=== PATIENT | male | born 1965 | race Caucasian/White ===

== ENCOUNTER 2017-03-25 00:41 | Observation (INO) | payer OTHER ==
--- NOTE | 2017-03-25 00:49 | CPEKG ---
Heart Rate: 84 RR Interval: 714 P-R Interval: 135 QRSD Interval: 90 QT Interval: 356 QTC Interval: 421 P Raymond: 70 QRS Raymond: 52 T Wave Raymond: 36 EKG Severity - NORMAL ECG - EKG Impression: SINUS RHYTHM Electronically Signed By: Vishal Chou 25-Mar-2017 05:21:52
[2017-03-25 01:04] LABS: % IMMATURE GRANULYOCYTES 0.2 % (0.0-1.1); ABSOLUTE IMMATURE GRANULOCYTES 0.01 10^3/uL (0.00-0.10); ADD DIFF? NO; ADD MORPH? NO; ADD SCAN? NO; ATYPICAL LYMPHOCYTE FLAG 10 (0-99); FRAGMENT RBC FLAG 0 (0-99); HEMATOCRIT 45.3 % (40.0-51.0); LEFT SHIFT FLG 0 (0-99); LIPEMIA HEMOLYSIS FLAG 90 (0-99); MEAN CELL HEMOGLOBIN 31.5 pg (27.9-34.1); MEAN CELL HEMOGLOBIN CONCENTR. 35.3 g/dL (32.4-36.7); MEAN CELL VOLUME 89.2 fL (81.5-99.8); MEAN PLATELET VOLUME 11.3 fL (8.7-11.7); PLATELET CLUMPS FLAG 0 (0-99); PLATELET COUNT 191 10^3/uL (150-400); RED BLOOD CELL COUNT 5.08 10^6/uL (4.40-6.38); RED CELL DISTRIBUTION WIDTH 11.6 % (11.5-15.2)
[2017-03-25 01:11] LABS: ANION GAP 14 mEq/L (8-16); CARBON DIOXIDE 25 mEq/l (22-31); CHLORIDE 100 mEq/L (97-110); CREATININE 1.2 mg/dL (0.7-1.3); GLOMERULAR FILTRATION RATE > 60; GLUCOSE 102 mg/dL (70-100); SODIUM 139 mEq/L (134-144)
--- NOTE | 2017-03-25 01:13 | EDPHY ---
H & P Stated Complaint: fatigue; sudden back pain then syncope episode Time Seen by Provider: 03/25/17 00:56 HPI/ROS: Chief Complaint: Chest pain, syncope HPI: 51-year-old male with no significant medical problems came home from a concert this morning. Was getting ready for bed when he started feeling lightheaded. He then developed pain in his left chest from his left elbow and going into his left neck. It was sharp as he was being stabbed with a knife. It was an 8/10 in intensity. He became pale and clammy. He then had a witnessed syncopal episode and was unconscious for less than a minute. On regaining consciousness discomfort in his chest was gone. He has a very mild headache with tenderness in the right side of his head where he hit a chest when he fell. No other recent illness otherwise he had a mild headache today. No nausea or vomiting. No shortness of breath. No history of syncope in the past. Does have a family history of coronary artery disease. ROS: 10 point Review of Systems is negative except as noted in the HPI. PMH: None Medications: None Allergies: Penicillin which causes rash Social History: No smoking, no alcohol, occasional marijuana Family History: Father's history is unknown, mother and maternal uncle both have a history of coronary artery disease status post stenting Physical Exam: Gen: Awake, Alert, No Distress HEENT: Nose: no rhinorrhea Eyes: PERRLA, EOMI Mouth: Moist mucosa Neck: Supple, no JVD Chest: nontender, lungs clear to auscultation Heart: S1, S2 normal, no murmur Abd: Soft, non-tender, no guarding Back: no CVA tenderness, no midline tenderness Ext: no edema, non-tender Skin: no rash Neuro: CN II-XII intact, Sensation grossly intact, Strength 5/5 in bilateral upper and lower extremities - Personal History Current Tetanus/Diphtheria Vaccine: Yes Tetanus Vaccine Date: 2016 - Medical/Surgical History Hx Asthma: No Hx Chronic Respiratory Disease: No Hx Diabetes: No Hx Cardiac Disease: No Hx Renal Disease: No Hx Cirrhosis: No Hx Alcoholism: No Hx HIV/AIDS: No Hx Splenectomy or Spleen Trauma: No Other PMH: several knees surgeries, pneumonia - Social History Smoking Status: Former smoker Constitutional: Initial Vital Signs Heart Rate 80 03/25/17 00:52 Respiratory Rate 18 03/25/17 00:52 Blood Pressure 115/86 H 03/25/17 00:52 O2 Sat (%) 94 03/25/17 00:52 O2 Delivery Mode Room Air Allergies/Adverse Reactions: Penicillins Allergy (Verified 12/04/14 15:39) Home Medications: Medication Instructions Recorded Daily Vitamin Formula-Minerals 03/25/17 Medical Decision Making - Diagnostics EKG Interpretation: ECG time 12:47 a.m.: Sinus rhythm with a rate of 84, normal axis, normal intervals, no acute ST or T-wave changes. Impression: Normal ECG. Imaging Results: Chest x-ray is negative per my interpretation. Imaging: Discussed imaging studies w/ call center operator Radiologist, I viewed and interpreted images myself ED Course/Re-evaluation: 51-year-old male with a family history of coronary disease had chest pain followed by syncopal event. This is very current concerning for a possible arrhythmia. ECG is negative now. D-dimer is elevated. Will get CT angiogram of the chest to rule out PE. Patient is resting comfortably. Troponin is negative. CT scan of the chest is negative for PE. Case discussed with Dr. Ortega, hospitalist. He will admit to his service for further evaluation. - Data Points Laboratory Results: Laboratory Results 03/25/17 00:45 03/25/17 00:45 03/25/17 03/25/17 03/25/17 00:45 00:45 00:45 WBC 5.78 10^3/uL 10^3/uL (3.80-9.50) RBC 5.08 10^6/uL 10^6/uL (4.40-6.38) Hgb 16.0 g/dL g/dL (13.7-17.5) Hct 45.3 % % (40.0-51.0) MCV 89.2 fL fL (81.5-99.8) MCH 31.5 pg pg (27.9-34.1) MCHC 35.3 g/dL g/dL (32.4-36.7) RDW 11.6 % % (11.5-15.2) Plt Count 191 10^3/uL 10^3/uL (150-400) MPV 11.3 fL fL (8.7-11.7) Neut % (Auto) 68.2 % % (39.3-74.2) Lymph % (Auto) 21.6 % % (15.0-45.0) [place] % (Auto) 9.0 % % (4.5-13.0) Eos % (Auto) 0.5 % L % (0.6-7.6) Baso % (Auto) 0.5 % % (0.3-1.7) Nucleat RBC Rel Count 0.0 % % (0.0-0.2) Absolute Neuts (auto) 3.94 10^3/uL 10^3/uL (1.70-6.50) Absolute Lymphs (auto) 1.25 10^3/uL 10^3/uL (1.00-3.00) Absolute Monos (auto) 0.52 10^3/uL 10^3/uL (0.30-0.80) Absolute Eos (auto) 0.03 10^3/uL 10^3/uL (0.03-0.40) Absolute Basos (auto) 0.03 10^3/uL 10^3/uL (0.02-0.10) Absolute Nucleated RBC 0.00 10^3/uL 10^3/uL (0-0.01) Immature Gran % 0.2 % % (0.0-1.1) Immature Gran # 0.01 10^3/uL 10^3/uL (0.00-0.10) D-Dimer 0.85 ug/mLFEU H ug/mLFEU (0.00-0.50) Sodium 139 mEq/L mEq/L (134-144) Potassium 4.0 mEq/L mEq/L (3.5-5.2) Chloride 100 mEq/L mEq/L (97-110) Carbon Dioxide 25 mEq/l mEq/l (22-31) Anion Gap 14 mEq/L mEq/L (8-16) BUN 19 mg/dL mg/dL (7-23) Creatinine 1.2 mg/dL mg/dL (0.7-1.3) Estimated GFR > 60 Glucose 102 mg/dL H mg/dL (70-100) Calcium 10.0 mg/dL mg/dL (8.5-10.4) Troponin I < 0.012 ng/mL ng/mL (0-0.034) Departure - Departure Disposition: [facility] Acute Clinical Impression: Chest pain, Syncope Condition: Fair Referrals: Patient,NotPresent [Unknown] - As per Instructions
[2017-03-25 01:22] LABS: TROPONIN I < 0.012 ng/mL (0-0.034)
[2017-03-25] MEDS ORDERED: IOPAMIDOL (ISOVUE 370) 100 ML BTL IV ONE (01:56)
[2017-03-25] MEDS ORDERED: ONDANSETRON 4 MG/2 ML VIAL IVP PRN (04:44)
[2017-03-25] MEDS ORDERED: ONDANSETRON DISINTEGRATING 4 MG TAB PO PRN (04:44)
[2017-03-25] MEDS ORDERED: ACETAMINOPHEN 325 MG TAB PO PRN (04:44)
--- NOTE | 2017-03-25 05:04 | PDGENHP ---
History and Physical - Chief Complaint Syncope - History of Present Illness 51 yo M w/ no PMHx presents to ED after episode of syncope. Patient went to [place] for a [employer] concert tonight. During the concert, he noted a fleeting sensation of chest discomfort but this abated quickly. Then, after returning home, he began to have chest pain, feel cold, diaphoretic, and nauseous; he then lost consciousness as his was calling the paramedics. He describes the chest pain as left sided with radiation to his left arm. He denies drug or alcohol use today. He has not drank alcohol in 20 years. He drank a 32 oz bottle of water today on his way to the show. He denies recent infectious symptoms or anything else out of the ordinary in recent days. He walks several miles daily and has not noticed any decrease in his ability to do this. He attended [employer] the last two nights and had no issues with the steep walk to the venue on either occasion. History Information - Allergies/Home Medication List Allergies/Adverse Reactions: Penicillins Allergy (Verified 12/04/14 15:39) Home Medications: Daily Vitamin Formula-Minerals 03/25/17 [Last Taken Unknown] I have personally reviewed and updated: family history, medical history - Past Medical History no pertinent PMH - Surgical History Reports: no pertinent surgical hx - Family History Positive for: CAD - Social History Smoking Status: Former smoker Alcohol Use: None Drug Use: None Review of Systems ROS: 10pt was reviewed & negative except for what was stated in HPI & below Physical Exam Temp Pulse Resp BP Pulse Ox 71 14 109/69 90 L 03/25/17 02:45 03/25/17 02:45 03/25/17 02:45 03/25/17 02:45 O2 (L/minute) 2 Constitutional: no apparent distress, not in pain Eyes: PERRL, EOMI Ears, Nose, Mouth, Throat: moist mucous membranes, no oral mucosal ulcers Cardiovascular: regular rate and rhythym, no murmur, rub, or gallop Respiratory: no respiratory distress, clear to auscultation Gastrointestinal: normoactive bowel sounds, soft, non-tender abdomen Skin: warm, no rashes or abrasions Musculoskeletal: full muscle strength, no muscle tenderness Neurologic: AAOx3, CN II-XII Intact Psychiatric: interacting appropriately, not anxious Lab Data & Imaging Review 03/25/17 00:45 03/25/17 00:45 WBC 5.78 10^3/uL (3.80-9.50) 03/25/17 00:45 RBC 5.08 10^6/uL (4.40-6.38) 03/25/17 00:45 Hgb 16.0 g/dL (13.7-17.5) 03/25/17 00:45 Hct 45.3 % (40.0-51.0) 03/25/17 00:45 MCV 89.2 fL (81.5-99.8) 03/25/17 00:45 MCH 31.5 pg (27.9-34.1) 03/25/17 00:45 MCHC 35.3 g/dL (32.4-36.7) 03/25/17 00:45 RDW 11.6 % (11.5-15.2) 03/25/17 00:45 Plt Count 191 10^3/uL (150-400) 03/25/17 00:45 MPV 11.3 fL (8.7-11.7) 03/25/17 00:45 Neut % (Auto) 68.2 % (39.3-74.2) 03/25/17 00:45 Lymph % (Auto) 21.6 % (15.0-45.0) 03/25/17 00:45 [place] % (Auto) 9.0 % (4.5-13.0) 03/25/17 00:45 Eos % (Auto) 0.5 % (0.6-7.6) L 03/25/17 00:45 Baso % (Auto) 0.5 % (0.3-1.7) 03/25/17 00:45 Nucleat RBC Rel Count 0.0 % (0.0-0.2) 03/25/17 00:45 Absolute Neuts (auto) 3.94 10^3/uL (1.70-6.50) 03/25/17 00:45 Absolute Lymphs (auto) 1.25 10^3/uL (1.00-3.00) 03/25/17 00:45 Absolute Monos (auto) 0.52 10^3/uL (0.30-0.80) 03/25/17 00:45 Absolute Eos (auto) 0.03 10^3/uL (0.03-0.40) 03/25/17 00:45 Absolute Basos (auto) 0.03 10^3/uL (0.02-0.10) 03/25/17 00:45 Absolute Nucleated RBC 0.00 10^3/uL (0-0.01) 03/25/17 00:45 Immature Gran % 0.2 % (0.0-1.1) 03/25/17 00:45 Immature Gran # 0.01 10^3/uL (0.00-0.10) 03/25/17 00:45 D-Dimer 0.85 ug/mLFEU (0.00-0.50) H 03/25/17 00:45 Sodium 139 mEq/L (134-144) 03/25/17 00:45 Potassium 4.0 mEq/L (3.5-5.2) 03/25/17 00:45 Chloride 100 mEq/L (97-110) 03/25/17 00:45 Carbon Dioxide 25 mEq/l (22-31) 03/25/17 00:45 Anion Gap 14 mEq/L (8-16) 03/25/17 00:45 BUN 19 mg/dL (7-23) 03/25/17 00:45 Creatinine 1.2 mg/dL (0.7-1.3) 03/25/17 00:45 Estimated GFR > 60 03/25/17 00:45 Glucose 102 mg/dL (70-100) H 03/25/17 00:45 Calcium 10.0 mg/dL (8.5-10.4) 03/25/17 00:45 Troponin I < 0.012 ng/mL (0-0.034) 03/25/17 00:45 Imaging Review: CTPE without PE or other abnormality per discussion with ED physician. Visualized and Interpreted EKG results: Yes EKG Interpretation: Positive for: normal sinsus rhythm (No ischemic changes) Assessment & Plan Assessment: 51 yo M w/ no PMHx presenting after episode of syncope of unclear etiology. Plan: 1. Syncope - Unclear etiology; chest pain suggestive of possible cardiac etiology, but significant nausea, diaphoresis, chills could also be consistent with vasovagal syncope. No reasons to suspect neurologic cause (seizure, TIA) at this time. CTPE negative for PE. - Admit to observation, monitor on telemetry - Trend troponins - Obtain TTE for further evaluation Diet - Regular Ppx - Ambulate, SCDs Code - Full Dispo - Admit to observation
[2017-03-25 05:39] LABS: % IMMATURE GRANULYOCYTES 0.2 % (0.0-1.1); ABSOLUTE IMMATURE GRANULOCYTES 0.01 10^3/uL (0.00-0.10); ADD DIFF? NO; ADD MORPH? NO; ADD SCAN? NO; ATYPICAL LYMPHOCYTE FLAG 0 (0-99); FRAGMENT RBC FLAG 0 (0-99); HEMATOCRIT 42.6 % (40.0-51.0); HEMOGLOBIN 14.8 g/dL (13.7-17.5); LEFT SHIFT FLG 0 (0-99); LIPEMIA HEMOLYSIS FLAG 90 (0-99); MEAN CELL HEMOGLOBIN 31.3 pg (27.9-34.1); MEAN CELL HEMOGLOBIN CONCENTR. 34.7 g/dL (32.4-36.7); MEAN CELL VOLUME 90.1 fL (81.5-99.8); MEAN PLATELET VOLUME 11.2 fL (8.7-11.7); PLATELET CLUMPS FLAG 0 (0-99); PLATELET COUNT 174 10^3/uL (150-400); RED BLOOD CELL COUNT 4.73 10^6/uL (4.40-6.38); RED CELL DISTRIBUTION WIDTH 11.7 % (11.5-15.2)
[2017-03-25 06:08] LABS: ANION GAP 8 mEq/L (8-16); CALCIUM 9.2 mg/dL (8.5-10.4); CARBON DIOXIDE 25 mEq/l (22-31); CHLORIDE 103 mEq/L (97-110); GLOMERULAR FILTRATION RATE > 60; GLUCOSE 111 mg/dL (70-100); POTASSIUM 4.2 mEq/L (3.5-5.2); SODIUM 136 mEq/L (134-144)
[2017-03-25 06:19] LABS: TROPONIN I < 0.012 ng/mL (0-0.034)
[2017-03-25 08:32] VITALS: RESP 16
--- NOTE | 2017-03-25 11:35 | PDCARST ---
CAR Stress Test Results Type of Stress Test: TM stress test Indication: cp/syncope Description of Procedure: After informed consent was obtained, pt was exercised according to Chaitanya Protocol. Monitoring was performed with standard stress engine testing supervisor electrode placement. Vital signs were monitored according to protocol throughout the procedure. STRESS EKG AND HEMODYNAMIC DATA. Exercise time: 10: 19 min. This is equivalent to: 10.9 METS. Resting heart rate: 70 bpm. Resting blood pressure: 120/64 mmHg. Resting O2 saturation: 95%. Peak heart rate: 154 bpm. This is 91% of age predicted maximum heart rate response. Peak blood pressure: 150/70 mmHg. Exercise O2: 95%. Arrhythmias : None. Reason for termination: The test was stopped due to maximal effort/ knee pain. Symptoms: The patient experienced no typical symptoms of angina during stress or recovery. STRESS TEST ANALYSIS. Baseline ECG: SR. Stress ECG : SR. exercise induced ischemic ECG changes: No. Rhythm: no arrhythmias noted during exercise and recovery. Blood pressure: normal blood pressure response to exercise. Exercise tolerance: The patient has normal exercise tolerance adjusted for age and gender. Symptoms: No exercise induced symptoms. Impression: IMPRESSIONS: Stress ECG negative for ischemia. The Dockery Treadmill Score is +10 consistent with low cardiovascular risk (<1% annual mortality). This is a normal study. Conclusion: Low risk stress test.
[2017-03-25 11:40] VITALS: BP 121/99; PULSE 91; TEMP 96.6; O2SAT 91
[2017-03-25] MEDS ORDERED: HYPROMELLOSE EACHEYE PRN (12:30)
[2017-03-25] MEDS ORDERED: DEXTRAN EACHEYE PRN (12:30)
[2017-03-25] MEDS ORDERED: TEARS/DEXTRAN 70/HYPROMELLOSE 15 ML OPHT.BTL EACHEYE PRN (12:37)
--- NOTE | 2017-03-25 13:39 | ECHO ---
[id number] + + [address] : : [place] [address] : : [phone] + + Adult Echocardiographic Report + ---------+ :Name: RAMANA PEREZ TStudy Date: 03/25/2017 10:07 AM : : Hospital Admission Number: [id number] Loc ation: ER: :: 1965 Gender: Male Height: 70 in : :Age: 51 yrs Race: WH Weight: 190 lb : :Reason For Study: Syncope : : BSA: 2.0 me ters2 : + ---------+ MMode/2D Measurements \T\ Calculations IVSd: 0.65 cm LVIDd: 5.0 cm FS: 39.1 % Ao root diam: LVPWd: 0.98 cm LVIDs: 3.0 cm EDV(Teich): 4.0 cm 116.1 ml LA dimension: ESV(Teich): 2.8 cm 35.6 ml EF(Teich): 69.3 % LVLd ap4: 9.3 cm SV(MOD-sp4): EDV(MOD-sp4): 72.0 ml 97.0 ml LVLs ap4: 7.1 cm ESV(MOD-sp4): 25.0 ml EF(MOD-sp4): 74.2 % Normal Measurement Values: + + :LVIDd (3.5-5.7cm) IVSd (0.6-1.1cm) LVPWd (0.6-1.1cm) Aortic Root (2.0-3.7cm)Left Atrium (1.5-4.0cm): :LV Vol(d) (76-115ml) LV Vol(s) (29-48ml) Ejec Fraction (50-65%)PV Rj (0.6- 1.2m/s) TV Rj (0.4-1.0m/s) : :MV E Rj (0.8-1.0m/s)MV A Rj (0.3-1.0m/s)LVOT Rj (0.7-1.2m/s) Asc Ao Rj ( 0.9-1.8m/s) : + + Doppler Measurements \T\ Calculations MV E max rj: 66.6 cm/sec Ao V2 max: 121.0 cm/sec MV A max rj: 68.1 cm/sec Ao max P.9 mmHg MV E/A: 0.98 Left Ventricle The left ventricle is normal in size. There is normal left ventricular wall thickness. Left ventricular systolic function is normal. Ejection Fraction = 65-70%. No regional wall motion abnormalities noted. Right Ventricle The right ventricle is normal in size and function. Atria The left atrial size is normal. Right atrial size is normal. The interatrial septum is intact with no evidence for an atrial septal defect. Mitral Valve The mitral valve is normal in structure and function. There is no evidence of mitral valve prolapse. There is no mitral valve stenosis. Tricuspid Valve Normal tricuspid valve. Aortic Valve The aortic valve is trileaflet. The aortic valve opens well. Mildy calcified NCC of the aortic valve. There is no aortic stenosis. Trace aortic regurgitation. Pulmonic Valve The pulmonic valve is normal in structure and function. Trace pulmonic valvular regurgitation. Great Vessels The aortic root is normal size. Pericardium/Pleural There is no pericardial effusion. Conclusion A complete two-dimensional transthoracic echocardiogram was performed (2D, M-mode, Doppler and color flow Doppler). Left ventricular systolic function is normal. Ejection Fraction = 65-70%. Mildy calcified NCC of the aortic valve. Trace aortic regurgitation. Trace pulmonic valvular regurgitation. Final Reading Physician: Chele Miller MD electronically signed on 03/25/2017 01:37 PM Ordering Physician: Frank Byers Performed By: Sumaya Dexter, MELISSACS
--- NOTE | 2017-03-25 17:03 | GDS ---
[f rep st] DISCHARGE SUMMARY DISCHARGE DIAGNOSIS: Syncope, likely vasovagal in etiology, doubt arrhythmia. CONSULTANTS: None. HOSPITAL COURSE BY PROBLEM: Syncope: The patient presented to the hospital after having a syncopal episode that was associated with some chest pain as well as pain radiating down his left arm. Whil e in the hospital, he has had no noted arrhythmias on telemetry. Serial troponins were done that we re negative. A treadmill stress test was done prior to discharge that did not show any signs of isc hemia. Given the fact that he has been having left arm pain, I did consider the diagnosis of a subclavian s teal syndrome. A carotid Doppler was done, which did not reveal any flow abnormalities consistent w ith this diagnosis. He also had a CT angio of the chest that was negative for PE. I have asked the radiologist to further review the CT angiogram to look for signs of vascular compromise to his uppe r extremity and further evaluate for steal syndrome, but at this time his over read has not yet been done. The patient had an echocardiogram during the stay, which did not reveal any significant valvular dis ease. PHYSICAL EXAMINATION: VITAL SIGNS: On day of discharge, blood pressure 121/99, pulse of 91, respir atory rate 16, O2 saturation 91% on room air, temperature afebrile. GENERAL: No acute distress hea rt S1, S2. LUNGS: Clear. ABDOMEN: Soft. EXTREMITIES: No edema. 2+ radial pulses bilaterally. DIAGNOSTICS: Echocardiogram done 03/25/2017, refer to report. Treadmill stress test done on day of discharge was negative for ischemia. CT angio of the chest was done, final read is still pending. DISCHARGE MEDICATIONS: Please refer to discharge medication reconciliation in [facility] for details. DISCHARGE INSTRUCTIONS: The patient will be discharged from the hospital where he was urged to seek followup with his primary care provider in the next week for routine hospital followup and to discu ss stress management techniques. He should also have followup of the final read of the chest CT. Aquiles clemons should also have further followup regarding his blood pressure, since it had been elevated during this stay on 1 occasion. /[id number]
== END 2017-03-25 15:48 | disposition home or self-care (01) ==
LOC: EDUNIT# → F2W 11:32
PROVIDERS: ADMIT Student in an Organized Health Care Education/Training Program; ATTEND Family Medicine
DX: R55 Syncope and collapse (principal); R07.9 Chest pain, unspecified; Z87.891 Personal history of nicotine dependence; Z82.49 Family history of ischemic heart disease and other diseases of the circulatory system; Z88.0 Allergy status to penicillin
CPT/HCPCS: 71020; 71275; 93005; 93017; 93306; 93880; 99285; G0378; Q9967